=== PATIENT | male | born 1990 | race Caucasian/White ===

== ENCOUNTER 2018-03-15 00:34 | Emergency (ER) | payer MEDICAID, SELFPAY ==
[2018-03-15 00:35] VITALS: BP 146/97; PULSE 58; RESP 24; TEMP 36.8; O2SAT 98; BMI 20.7
--- NOTE | 2018-03-15 00:58 | NURSING ---
NO OLD EKG TO OBTAIN
[2018-03-15 01:00] VITALS: PULSE 56; RESP 18; O2SAT 100
[2018-03-15] MEDS: Ipratropium/Albuterol Sulfate 3 ML AMPUL.NEB INHALATION (01:00)
[2018-03-15 01:07] LABS: Absolute Lymphocyte Count 2.26 X10^3/ul (0.83-4.51); Absolute Neutrophil Count 8.9 X10^3/uL (2.0-7.7); Basophil# 0.05 X10^3/uL; Basophil% 0.4 % (0-1); Eosinophil# 0.17 X10^3/uL; Eosinophils% 1.4 % (0-5); Hematocrit 44.6 % (40-54); Hemoglobin 14.9 g/dl (13.0-16.5); Lymphocyte # 2.26 X10^3/ul (4.0); Lymphocyte % 18.7 % (19-41); Mean Corp Hgb Conc 33.4 g/gl (32-36); Mean Corpuscular Hgb 31.3 pg (27.0-32.0); Mean Corpuscular Volume 93.7 fL (80-94); Mean Platelet Vol. 10.2 fl (6.2-12.0); Monocyte# 0.69 X10^3/uL; Monocyte% 5.7 % (0-10); Neutrophil # 8.88 X10^3/uL (2.7-7.7); Neutrophil % 73.6 % (47-70); Platelet Count 264 K/mm3 (150-450); RBC Distribution Width CV 14.3 % (11.6-14.6); RBC Distribution Width SD 47.4 fl (35.1-43.9); Red Blood Count 4.76 M/mm3 (4.6-6.2); White Blood Count 12.1 K/mm3 (4.4-11.0)
[2018-03-15] MEDS: 0.9% Normal Saline 1,000 ML 150 ML IV (01:13)
[2018-03-15] MEDS: Aspirin 81 MG TAB.CHEW 324 MG PO (01:13)
[2018-03-15 01:14] LABS: POSITIVE COUNT NO; POSITIVE DIFFERENTIAL NO; POSITIVE MORPHOLOGY NO
[2018-03-15 01:18] LABS: D-Dimer Quantitative (DVT/PE) < 0.27 FEU/ug/m (0.27-0.49)
[2018-03-15 01:34] LABS: Anion Gap 6 (5-15); BUN 7 mg/dL (7-18); Calcium,Total 8.4 mg/dL (8.5-10.1); Chloride 107 mmol/L (98-107); Creatinine, Serum 0.87 mg/dL (0.70-1.30); EST Glomerular Filtration Rate 110 mL/min (>60); Est Glom Filt Rate - Afr Amer 134 mL/min (>60); Estimated Creatinine Clearance 117.29 ml/min; Glucose 93 mg/dL (74-106); Potassium 3.3 mmol/L (3.5-5.1); Sodium Level 143 mmol/L (136-145)
--- NOTE | 2018-03-15 01:42 | ED.VISSUMM ---
- ER Visit Summary Date of Service: 03/15/18 Chief Complaint: [Shortness of breath] History of Present Illness: The patient is a 27 M [presents the emergency department with complaint of shortness of breath that started around midnight as he was driving home from work. Patient states that he started a cough and felt short of breath afterwards. Patient describes some tightness, diffusely in his chest. Patient had not been ill prior to this event. He denies any fever or significant cough otherwise. Patient is coughing up some yellow phlegm now. Patient denies recent travel or surgery. Patient has no medical history otherwise other than ADHD.] Physical Examination: [HEENT-PERRLA, EOMI. Cranial nerves II through XII grossly intact. TMs clear. Mucous membranes moist. No adenopathy. Pharynx not erythematous. No angioedema. Cardiovascular-regular rate and rhythm without murmur or ectopy Lungs-good aeration bilaterally. Patient has some faint expiratory wheezes noted bilaterally. No accessory muscle use or retractions. Abdomen-normoactive bowel sounds, soft, nontender, no rebound or rigidity, no peritoneal signs. Extremities-intact ?4, normal range of motion, normal pulses, atraumatic] Test Results: [EKG obtained on arrival showed a sinus rhythm with a ventricular rate of 52 bpm with no significant acute ST segment changes noted. CBC with differential count 12.1, hemoglobin 14.9, hematocrit 44.6. Chemistries unremarkable other than a slightly depressed potassium at 3.3. Troponin was less than 0.015. D-dimer was normal less than 0.27. Chest x-ray was normal.] Emergency Department Course and Treatment: [Patient was given a DuoNeb aerosol and felt improved after treatment.] Treatment Plan: [Patient will be dispensed an albuterol MDI and advised to follow-up with his primary care physician in 2 days as he does have a appointment with his primary care physician.] Disposition: [Discharged home in stable condition] Impression: [Asthmatic bronchitis] This note was generated with [employer] dictation software. It may contain incorrect words, spelling, and punctuation that were not noted in review of the chart prior to signing ED Disposition - Plan for ED Patient: Chief Complaint: Shortness of Breath Referrals: Care Physician,No Primary [Primary Care Provider] -
--- NOTE | 2018-03-15 01:45 | ED.DEP ---
ED Disposition - Plan for ED Patient: Chief Complaint: Shortness of Breath Instructions: ED Bronchitis Asthmatic Referrals: Care Physician,No Primary [Primary Care Provider] - 2 Days
[2018-03-15 01:49] VITALS: BP 125/77; PULSE 58; RESP 22; O2SAT 99
--- NOTE | 2018-03-16 10:43 | CM.ED ---
ED CALLBACK: Follow-up call placed to patient. Patient states he feels better today. Patient confirms that he has an appointment to see his PCP today. He states he doesn't recall the provider's name at this time. He denies any needs/questions/concerns.
== END 2018-03-15 01:52 | disposition home or self-care (01) ==
LOC: ED 01:25
PROVIDERS: Emergency Provider Emergency Medicine
DX: J45.909 Unspecified asthma, uncomplicated (principal); R06.00 Dyspnea, unspecified; F90.9 Attention-deficit hyperactivity disorder, unspecified type; F17.200 Nicotine dependence, unspecified, uncomplicated
CPT/HCPCS: 71045; 80048; 84484; 85025; 85379; 93005; 94640; 99285; J7030; A4216